=== PATIENT | male | born 1950 | race Caucasian/White ===

== ENCOUNTER 2025-10-17 11:23 | Outpatient (RCR) | payer MEDICARE, SELFPAY ==
[2025-09-26 11:58] LABS: Hematocrit 49.5 % (42.0-54.0); Hemoglobin 16.7 g/dL (14.0-18.0); Immature Granulocytes Abs Auto 0.03 10^3/uL (0.00-0.03); Immature Granulocytes Pct Auto 0.2 % (0.0-0.5); Lymphocytes Absolute Auto 2.2 10^3/uL (1.2-3.8); Mean Corpuscular HGB Conc 33.7 g/dL (29.9-35.2); Mean Corpuscular Hemoglobin 30.4 pg (25.9-34.0); Mean Corpuscular Volume 90.0 fL (80.0-94.0); Platelet Count 277 10^3/uL (150-450); Red Blood Count 5.50 10^6/uL (4.70-6.10); White Blood Count 12.6 10^3/uL (4.0-11.0)
== END 2025-10-22 23:59 | disposition home or self-care (01) ==
LOC: HEMC 11:23
PROVIDERS: PCP Family Medicine; Visit Provider Internal Medicine Hematology & Oncology
DX: D72.829 Elevated white blood cell count, unspecified (principal); R06.00 Dyspnea, unspecified; R10.84 Generalized abdominal pain; F17.210 Nicotine dependence, cigarettes, uncomplicated; Z85.46 Personal history of malignant neoplasm of prostate; Z93.3 Colostomy status; E11.9 Type 2 diabetes mellitus without complications; I10 Essential (primary) hypertension; Z87.440 Personal history of urinary (tract) infections; Z79.84 Long term (current) use of oral hypoglycemic drugs
CPT/HCPCS: 36415; 74019; 83615; 85025; 85652; 86140; G0463

== ENCOUNTER 2025-10-17 12:44 | Outpatient (OUT) | payer MEDICARE, SELFPAY ==
--- NOTE | 2025-10-17 13:01 | XR_ITS ---
[facility] [place] [id number] Patient Name: JOSE DICKEY MRN: [id number] date: 1950 Sex: M Assigned Patient Location: RAD Current Patient Location: [facility] Accession/Order Number: [id number] Exam Date: 10/17/2025 13:15 Report Date: 10/17/2025 13:33 At the request of: NALINI BLUM MD Procedure: XR abdomen min 2V XR abdomen min 2V 10/17/2025 1:23 PM SIGNS AND SYMPTOMS: ^Elevated White Cell Count, Dyspnea, General Abdominal Pain PROTOCOL: Frontal radiographs of the abdomen and pelvis COMPARISON: None FINDINGS: Findings suggest the presence of radiodense renal stones measuring 7 mm in greatest dimension on the right and 8 mm in greatest dimension on the left. There is a nonobstructive bowel gas pattern. There is a moderate to large amount of stool within the colon. Degenerative changes are noted in the thoracolumbar spine and hips. XR/XR abdomen min 2V IMPRESSION: Findings suggest the presence of radiodense renal stones measuring 7 mm in greatest dimension on the right and 8 mm in greatest dimension on the left. There is a moderate to large amount of stool within the colon. Impression dictated by: Hussain Rodriguez M.D. 10/17/2025 1:33 PM Dictation Location: [place] [address] Electronically authenticated by: [id number] Y Date: 10/17/2025 13:33
== END 2025-10-17 12:45 | disposition home or self-care (01) ==
LOC: RAD 12:48
PROVIDERS: PCP Family Medicine; Visit Provider Internal Medicine Hematology & Oncology
DX: D72.829 Elevated white blood cell count, unspecified (principal); R06.00 Dyspnea, unspecified; R10.84 Generalized abdominal pain; F17.210 Nicotine dependence, cigarettes, uncomplicated
CPT/HCPCS: 74019